=== PATIENT | male | born 1995 | race Caucasian/White ===

== ENCOUNTER 2019-08-05 08:11 | Day surgery (SDC) | payer OTHER ==
[~2019-08-05 08:11] MED LIST: Buffered Lidocaine 1% SYRIN* 1 ML/SYRINGE INTRADERM ONE; Dexamethasone IV* 4 MG/ML 1 ML (4 MG) IV SLOW PU ONE; Dexamethasone IV* 4 MG/ML 1 ML (4 MG) ONE; Famotidine IV* 10 MG/ML 2 ML (20 mg) IV ONE; Famotidine IV* 10 MG/ML 2 ML (20 mg) ONE; Lactated Ringers 1000 ML Bag* 1,000 ML IV SCH
[2019-08-05] MEDS ORDERED: ceFAZolin 2 GM PREMIX in ORs 2 GM/50 ML BAG ONE (08:25)
[2019-08-05] MEDS ORDERED: Ropivacaine 0.2% * 2 MG/ML VIAL ONE (09:25)
[2019-08-05] MEDS ORDERED: fentaNYL* 50 MCG/ML 5 ML VIAL (250 MCG VIAL) ONE (09:26)
[2019-08-05] MEDS ORDERED: Lidocaine 1% w EPI 1:200,000* SDV 30 ML VIAL ONE (09:26)
[2019-08-05] MEDS ORDERED: Midazolam* 1 MG/ML 5 ML VIAL (5 MG) ONE (09:26)
[2019-08-05] MEDS ORDERED: Propofol* 10 MG/ML 20 ML BTL ONE (09:27)
[2019-08-05] MEDS ORDERED: Ketorolac INJ* 30 MG/ML 1 ML VIAL ONE (09:27)
[2019-08-05] MEDS ORDERED: Ondansetron INJ* 2 MG/ML VIAL ONE (09:27)
[2019-08-05] MEDS ORDERED: Lidocaine 2% PF * 5 ML VIAL ONE (09:27)
[2019-08-05] MEDS ORDERED: Lidocaine 1.5% EPI 1:200,000* 30 ML SDV ONE (09:29)
[2019-08-05] MEDS ORDERED: Glycopyrrolate IV* 0.2 MG/ML 1 ML VIAL ONE (09:55)
[2019-08-05] MEDS ORDERED: Naloxone* 0.4 MG/ML 1 ML VIAL IV PRN (10:29)
[2019-08-05] MEDS ORDERED: oxyCODONE/Acetamin 5/325 MG* TAB PO PRN (10:29)
[2019-08-05] MEDS ORDERED: Ondansetron INJ* 2 MG/ML VIAL IV PRN (10:29)
[2019-08-05] MEDS ORDERED: DiMENhydriNATE IV* 50 MG/ML VIAL IV PUSH PRN (10:29)
[2019-08-05] MEDS ORDERED: fentaNYL* 50 MCG/ML 2 ML VIAL (100 MCG VIAL) IV PRN (10:29)
[2019-08-05 12:04] VITALS: BP 133/69
--- NOTE | 2019-08-05 13:46 | OP ---
DATE OF OPERATION: 08/05/19 [facility] DATE OF : [birth year] SURGEON: Naeem Brooks MD HUMAN [employer] VICE PRESIDENT: None available. ANESTHESIOLOGIST: Dr. Moore. ANESTHESIA: General. PRE-OP DIAGNOSIS: Left knee bucket-handle tear of the medial meniscus. POST-OP DIAGNOSIS: Left knee bucket-handle tear of the medial meniscus. OPERATIVE PROCEDURE: Left knee arthroscopy with partial meniscectomy, debridement of medial plica. COMPLICATIONS: None. ESTIMATED BLOOD LOSS: Minimal. 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 He had a bucket-handle tear of the medial meniscus. We talked about 2 options, repair versus meniscectomy. He wanted to play through the season and had persistent issues and elected to proceed with surgical treatment afterwards, now it has been almost 3 months since his initial injury. He has previous history of a partial meniscectomy on the contralateral side for a similar type of injury. After extensive discussion of the risks and benefits of operative versus nonoperative treatment, he has elected to proceed with surgical treatment. We did talk about meniscus repair versus partial meniscectomy. I did tell him that he has a better chance of less risk of osteoarthritis and better functional outcomes if we try to repair this, although it is a little more than 2 months out. He has elected to proceed with partial meniscectomy. He is unable to comply with the recovery time at this time because he has other obligations. He has elected to proceed with partial meniscectomy. I did talk to him about options down the road such as a meniscus transplant if he has persistent issues. I talked about his risk of arthritis being very substantial , he is aware. He has a family history of DVT where his father had a previous DVT, he has never had a history himself, so we will place him on aspirin for a short while after surgery. DESCRIPTION OF PROCEDURE: The patient was greeted in the preoperative area by the attending surgeon. Correct extremity was marked. Consent was confirmed. The patient was brought back to the operating suite, where he was placed in supine position on the operating table. He then underwent general anesthesia and LMA intubation, after which he was appropriately positioned on the bed. Lateral post was positioned. An unsterile tourniquet was placed high on the proximal thigh. The left leg was then prepped and draped in usual sterile fashion beginning with chlorhexidine soap, scrub, and alcohol wipe and a final prep with ChloraPrep. After appropriate surgical pause indicating site, side, procedure, and administration of antibiotics, the knee was intra-articularly injected with 1% lidocaine with epi. The anterior lateral portal was made sharply with #11 blade. Scope was introduced into the joint, joint was examined. There was evidence of a bucket-handle tear of the meniscus that was present. The medial meniscus has extended the vast majority of the meniscus, although not entirely, the anterior quarter of the meniscus appeared to be intact. ACL and PCL were intact. There was a large plica medially. This was debrided back using the krissy and the biters. Electrocautery device was used to maintain hemostasis. The patellofemoral joint had grade 0 changes. Gutters were otherwise intact without any loose debris. Lateral compartment was intact without any loose debris and grade 0 changes of the joint. The attention was directed to the medial meniscus. The biters and krissy were then used to debride the meniscus. There was not a lot of great blood supply to the flap anyway, but this was definitely in the red-red and red-white zone, potentially could have been repairable, although it had been a long time since his injury. After the krissy and biters were used to debride it back with care to try to not traumatize the remainder of the cartilage, the final images were obtained. The wounds were copiously irrigated with sterile saline. Portals were closed with 3 -0 nylon. Sterile dressings were applied. A Cryo/Cuff was applied, He was woken from anesthesia and transferred to the PACU in stable condition. POSTOPERATIVE PLAN: He will be weight bearing as tolerated. Discharged on pain medication. DVT prophylaxis was considered and as his father had a history of a DVT but he personally does not, we will send him with [facility] for a short course. I will see the patient back in 10-14 days. [id number]/[facility] #: [id number] ANA MARÍA
== END 2019-08-05 12:20 | disposition home or self-care (01) ==
LOC: OREAST 08:11
PROVIDERS: ATTEND Orthopaedic Surgery
DX: S83.212A Bucket-handle tear of medial meniscus, current injury, left knee, initial encounter (principal); M67.52 Plica syndrome, left knee; X58.XXXA Exposure to other specified factors, initial encounter; Y93.9 Activity, unspecified; Y92.9 Unspecified place or not applicable
CPT/HCPCS: J0690; J1100; J1885; J2001; J2250; J2405; J2704; J2795; J3010